=== PATIENT | male | born 1980 | race Caucasian/White ===

== ENCOUNTER 2021-05-13 17:35 | Emergency (ER) | payer MEDICAID, OTHER ==
[~2021-05-13] VITALS: Ht 188 cm; Wt 75.0 kg
[2021-05-13 17:38] VITALS: BP 106/56
--- NOTE | 2021-05-13 17:40 | NUR ---
PT BIB [facility] FOR C/O R-TESTICULAR PAIN. 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 PT STATES PAIN IS RLQ AND RADIATES TO R-FLANK. PT DENIES ANY OTHER SYMPTOMS AT THIS TIME. CONNECTED TO MONITORS, LAW ENFORCEMENT AT [facility]. NADN/VSS.
[2021-05-13 18:29] LABS: MICROSCOPIC NOT IND
[2021-05-13] MEDS ORDERED: HYDROmorphone 2 MG/ML, 1ML ONE (18:42)
--- NOTE | 2021-05-13 18:52 | NUR ---
REPORT TO WERNER MARRUFO
--- NOTE | 2021-05-13 18:53 | NUR ---
RECEIVED REPORT FROM WERNER MISTRY
[2021-05-13] MEDS ORDERED: PLEASE ENTER ALLERGIES MC SCH (19:00)
[2021-05-13] MEDS ORDERED: HYDROmorphone 2 MG/ML, 1ML IVPush ONE (19:00)
[2021-05-13] MEDS ORDERED: CEFTRIAXONE 1,000 MG IM ONE (20:30)
[2021-05-13] MEDS ORDERED: CEFTRIAXONE 1,000 MG ONE (20:39)
--- NOTE | 2021-05-13 20:59 | NUR ---
Patient given discharge instructions and they have confirmed that they understand the instructions. Patient ambulatory with steady gait.
== END 2021-05-13 21:01 | disposition home or self-care (01) ==
LOC: ED 19:55
DX: N45.1 Epididymitis (principal); N45.2 Orchitis; F17.200 Nicotine dependence, unspecified, uncomplicated
CPT/HCPCS: 76870; 81003; 96372; 96374; 99285; J0696; J1170